=== PATIENT | male | born 1990 | race Caucasian/White ===

== ENCOUNTER 2018-10-16 00:48 | Emergency (ER) | payer OTHER ==
[~2018-10-16] VITALS: Ht 180.3 cm; Wt 109.8 kg
[~2018-10-16 00:48] MED LIST: ALPR.25T PO; ALPR.5T PO; AMOX500C2 PO; BUPR150T PO; BUTA-234 PO; FAMO20TA5 PO; IBP800T PO; LORA10TA7 PO; NAPR-243 PO; OMEP20CA12 PO; ONDAN4ODT SL; ONDN4T PO; RSP2T PO; TRM50T PO; ZIPR20CA23 PO; [UNRECOGNIZED DRUG - REMARK] PO
--- OUTSIDE RECORDS SUMMARY | 2018-10-16 01:01 | XMS REPORT | Clinical Summary ---
Author Author [facility] Address Unknown Phone Unavailable Care Team Providers Care Hris Coordinator Name Role Phone PCP Unavailable Allergies Not on File Current Medications Not on file Active Problems Not on file Social History Tobacco Use Types Packs/Day Years Used Date Never Assessed Sex Assigned at Date Recorded Not on file Last Filed Vital Signs Not on file Plan of Treatment Not on file Results Not on filefrom Last 3 Months
--- OUTSIDE RECORDS SUMMARY | 2018-10-16 01:01 | XMS REPORT | Clinical Summary ---
Author Author [facility] Address Unknown Phone Unavailable Care Team Providers Care Director Employee Communications Name Role Phone PP Unavailable Allergies No Known Allergies Current Medications Prescription Sig. Disp. Refills Start End Date Status Date QUEtiapine (SEROQUEL) 100 One orally at bedtime for 30 2 01/30/20 Active MG tablet insomnia and bipolar 09 aripiprazole (ABILIFY) 20 One orally daily for 30 2 01/30/20 Active MG tablet mood/bipolar 09 lisdexamfetamine Two orally daily 30 0 02/07/20 Active (VYVANSE) 40 MG capsule 09 minocycline (DYNACIN) 100 One orally twice daily 60 2 01/30/20 Active MG tablet for acne 09 .reconcile (MEDICATION No Sig 1 0 05/12/20 Active LIST IMPORTED) 13 Active Problems Not on file Social History Tobacco Use Types Packs/Day Years Used Date Never Assessed Sex Assigned at Date Recorded Not on file Last Filed Vital Signs Vital Sign Reading Time Taken Blood Pressure 120/64 01/29/2009 1:05 PM CDT Pulse - - Temperature - - Respiratory Rate - - Oxygen Saturation - - Inhaled Oxygen - - Concentration Weight 103.1 kg (227 lb 4 oz) 01/29/2009 1:05 PM CDT Height 181.6 cm (5' 11.5") 01/29/2009 1:05 PM CDT Body Mass Index 31.25 01/29/2009 1:05 PM CDT Plan of Treatment Health Maintenance Due Date Last Done Comments Varicella Vaccines (1 of 2005 2 - 2-dose adolescent series) DTaP,Tdap,and Td Vaccines 2011 (1 - Tdap) Influenza Vaccine (#1) 2018 HPV Vaccines Aged Out No longer eligible based on patient's age to complete this topic Results Not on filefrom Last 3 Months
--- OUTSIDE RECORDS SUMMARY | 2018-10-16 01:02 | XMS REPORT | Clinical Summary ---
Author Author [facility] Organization [facility] Address Unknown Phone Unavailable Care Team Providers Care Electric Motor Fitter Name Role Phone Self, Referral PCP Unavailable Jocelyn Vargas RN Unavailable Unavailable Yaya Cruz RN Unavailable Unavailable Source Comments Some departments are not documenting in the electronic medical record. If you do not see the information that you expected, contact Release of Information in the Health Information Management department at [phone] for further assistance in locating additional records.[facility] Allergies No Known Allergies Current Medications Prescription Sig. Disp. Refills Start End Date Status Date minocycline (DYNACIN) 100 Take 100 mg by mouth Active mg PO tablet Twice Daily. QUETIAPINE FUMARATE Take by mouth. Active (SEROQUEL PO) oxcarbazepine (TRILEPTAL) Take 150 mg by mouth Active 150 mg PO tablet Twice Daily. cephalexin (KEFLEX) 500 Take 500 mg by mouth Four Active mg PO capsule Times Daily. chlorhexidine gluconate Take 15 mL by mouth Twice 1 Bottle 0 08/12/20 Active (PERIDEX) 0.12 % MM Daily. 

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
--- NOTE | 2018-10-16 01:12 | ED Upper Extremity ---
General Chief Complaint: Upper Extremity Stated Complaint: RT HAND SWOLLEN Source: patient, police Exam Limitations: no limitations History of Present Illness Date Seen by Provider: Oct 16, 2018 Time Seen by Provider: 00:56 Initial Comments Patient presents to the ER by police with chief complaint that he rolled out of his bunk bed around 8 or 9:00 this evening and fell onto his right hand. He has swelling over the first and second metacarpals. He has decreased range of motion of his fingers. He denies having previous surgery or fractures. He took some ibuprofen around 9 or 10:00 and has had an ice pack on it for about an hour. Allergies and Home Medications Allergies Coded Allergies: No Known Drug Allergies (Unverified , 07/16/16) Home Medications No Active Prescriptions or Reported Meds Patient Home Medication List Home Medication List Reviewed: Yes Review of Systems Constitutional: No chills, No diaphoresis EENTM: No hearing loss, No ear pain Respiratory: No cough, No short of breath Cardiovascular: No chest pain, No edema Gastrointestinal: No abdominal pain, No constipation, No diarrhea Genitourinary: No decreased output, No dysuria Past Qddispt-Xmovkt-Redhva Hx Patient Social History Alcohol Use: Occasionally Uses Recreational Drug Use: Yes Drug of Choice: IV Meth Smoking Status: Current Everyday Smoker Type Used: Cigarettes Recent Foreign Travel: No Contact w/Someone Who Travel: No Recent Hopitalizations: No Immunizations Up To Date Tetanus Booster (TDap): Unknown PED Vaccines UTD: No Seasonal Allergies Seasonal Allergies: No Past Medical History Reproductive Disorders: No ADD/ADHD, Anxiety, Suicide Attempts, Bipolar, Depression Adverse Reaction/Blood Tranf: No Family Medical History No Pertinent Family Hx Physical Exam Vital Signs Vital Signs - First Documented 10/16/18 00:57 Temp 97.3 Pulse 60 Resp 16 B/P (MAP) 113/92 (99) Pulse Ox 97 O2 Delivery Room Air Capillary Refill : Height, Weight, BMI Height: 5'11" Weight: 199lbs. 0.0oz. 90.671997ps; BMI Method:Stated General Appearance: WD/WN, no apparent distress HEENT: PERRL/EOMI, normal ENT inspection Cardiovascular: normal peripheral pulses, regular rate, rhythm Respiratory: no respiratory distress, no accessory muscle use Wrist: Yes normal inspection, Yes normal ROM, Yes bone tenderness (right side) Hand: Right, ecchymosis, limited ROM (of all 5 fingers), nail injury, soft tissue tenderness, swelling (over the dorsum of the second and third metacarpals.) Neurologic/Psychiatric: alert, oriented x 3 Skin: normal color, warm/dry Progress/Results/Core Measures Results/Orders My Orders Orders - JOÃO JENKINS Hand, Right, 3 Views (10/16/18 01:02) Acetaminophen Tablet (Tylenol Tablet) (10/16/18 01:15) Medications Given in ED Current Medications Medications Dose Ordered Sig/Alla Route Start Time Stop Time Status Last Admin Dose Admin Acetaminophen 1,000 mg ONCE ONCE PO 10/16/18 01:15 10/16/18 01:16 DC 10/16/18 01:16 1,000 MG Vital Signs/I&O 10/16/18 00:57 Temp 97.3 Pulse 60 Resp 16 B/P (MAP) 113/92 (99) Pulse Ox 97 O2 Delivery Room Air Progress Progress Note : Time: 01:11 Progress Note Ice pack, Tylenol 1000 mg and hand x-ray. Diagnostic Imaging Diagonstic Imaging: Xray Plain Films/CT/US/NM/MRI: hand Comments No acute osseous abnormalities. Reviewed: Reviewed by Me Departure Impression Primary Impression: Contusion of hand, right Qualified Codes: S60.221A - Contusion of right hand, initial encounter Disposition: HOME, SELF-CARE Condition: Stable Departure-Patient Inst. Decision time for Depature: 01:38 Referrals: [facility] (PCP/Family) Primary Care Physician Patient Instructions: Hand Pain (DC) Add. Discharge Instructions: Ice every 4 hours for the first 3 days. Otherwise Tylenol and ibuprofen. Keep it elevated above the level of your heart when possible. If you're still having significant pain or disability by 7-10 days you should follow-up with your primary care doctor. All discharge instructions reviewed with patient and/or family. Voiced understanding. Scripts No Active Prescriptions or Reported Meds JOÃO JENKINS Oct 16, 2018 01:12
[2018-10-16] MEDS ORDERED: ACETAMINOPHEN 500 MG TAB (TYLENOL) PO ONE (01:15)
[2018-10-16 01:46] VITALS: BP 113/92
--- NOTE | 2018-10-16 07:16 | Diagnostic Imaging Report ---
INDICATION: Right hand injury Three views of the right hand show no fracture, dislocation or other acute abnormalities. IMPRESSION: Negative right hand Dictated by: Dictated on workstation # [id number]
== END 2018-10-16 01:46 | disposition home or self-care (01) ==
LOC: EDUNIT# 00:48 → ER 00:52
DX: S60.221A Contusion of right hand, initial encounter (principal); F31.9 Bipolar disorder, unspecified; F90.9 Attention-deficit hyperactivity disorder, unspecified type; F41.9 Anxiety disorder, unspecified; F15.10 Other stimulant abuse, uncomplicated; F17.210 Nicotine dependence, cigarettes, uncomplicated; Z91.5 Personal history of self-harm; W06.XXXA Fall from bed, initial encounter
CPT/HCPCS: 73130

== ENCOUNTER 2018-10-28 10:03 | Emergency (ER) | payer OTHER ==
[~2018-10-28] VITALS: Ht 180.3 cm; Wt 100.7 kg
--- OUTSIDE RECORDS SUMMARY | 2018-10-28 10:07 | XMS REPORT | Clinical Summary ---
Author Author [facility] Organization [facility] Address Unknown Phone Unavailable Care Team Providers Care Government Relations Director Name Role Phone PCP Unavailable Allergies Not [...]
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
--- OUTSIDE RECORDS SUMMARY | 2018-10-28 10:08 | XMS REPORT | Clinical Summary ---
Author Author [facility] Organization [facility] Address Unknown Phone Unavailable Care Team Providers Care Repairer General Name Role Phone Self, Referral PCP Unavailable Jocelyn Vargas RN Unavailable Unavailable Yaya Cruz RN Unavailable Unavailable Source Comments Some departments are not documenting in the electronic medical record. If you do not see the information that you expected, contact Release of Information in the Health Information Management department at [phone] for further assistance in locating additional records.[facility] Allergies No Known Allergies Medications End Date Status Medication Sig Dispensed Refills Start Date Active minocycline (DYNACIN) 100 Take 100 mg 0 mg PO tablet by mouth Twice Daily. Active QUETIAPINE FUMARATE Take by 0 (SEROQUEL PO) mouth. Active oxcarbazepine (TRILEPTAL) Take 150 mg 0 150 mg PO tablet by mouth Twice Daily. Active cephalexin (KEFLEX) 500 Take 500 mg 0 mg PO capsule by mouth Four Times Daily. Active chlorhexidine gluconate Take 15 mL by 1 Bottle 0 (PERIDEX) 0.12 % MM mouth Twice 0 solution Daily. Active Problems Not on file Immunizations Name Dates Previously Given Next Due DT Vaccine 08/12/2010 Social History Date Tobacco Use Types Packs/Day Years Used Current Every Day Smoker Alcohol Use Drinks/Week oz/Week Comments No Sex Assigned at Date Recorded Not on file Industry Job Start Date Occupation Not on file Not on file Not on file Travel End Travel History Travel Start No recent travel history available. 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
--- OUTSIDE RECORDS SUMMARY | 2018-10-28 10:08 | XMS REPORT | Clinical Summary ---
Author Author [facility] Address Unknown Phone Unavailable Care Team Providers Care Tram Driver Name Role Phone PP Unavailable Allergies No [...]
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
--- NOTE | 2018-10-28 10:48 | Diagnostic Imaging Report ---
INDICATION: Right forearm pain, fall. TIME OF EXAMINATION: 10:55 AM. FINDINGS: The alignment at the elbow and wrist appears normal. The radius and ulna appear intact. No fractures are seen. The soft tissues are unremarkable. IMPRESSION: No acute bony abnormality is detected. Dictated by: Dictated on workstation # [id number]
[2018-10-28 12:17] VITALS: BP 120/90
== END 2018-10-28 12:21 | disposition home or self-care (01) ==
LOC: EDUNIT# 10:03 → ER 10:04
DX: S60.211A Contusion of right wrist, initial encounter (principal); F90.9 Attention-deficit hyperactivity disorder, unspecified type; F41.9 Anxiety disorder, unspecified; F31.9 Bipolar disorder, unspecified; F17.210 Nicotine dependence, cigarettes, uncomplicated; Z91.5 Personal history of self-harm; W10.8XXA Fall (on) (from) other stairs and steps, initial encounter
CPT/HCPCS: 73090

== ENCOUNTER 2019-01-18 12:19 | Emergency (ER) | payer SELFPAY ==
[~2019-01-18] VITALS: Ht 180.3 cm; Wt 79.4 kg
[2019-01-18] MEDS ORDERED: ONDANSETRON 4 MG (ZOFRAN) ORAL DISSOLVE TAB PO ONE (12:45)
--- NOTE | 2019-01-18 13:26 | ED Respiratory ---
General Chief Complaint: Abdominal/GI Problems Stated Complaint: CANT KEEP ANYTHING DOWN, ALITTLE BLOOD Nursing Triage Note: PT PRESENTS TO ED WITH COMPLAINTS OF N/V, AND SORE THROAT X 2-3 DAYS. Source: patient Exam Limitations: no limitations History of Present Illness Date Seen by Provider: Jan 18, 2019 Time Seen by Provider: 12:35 Allergies and Home Medications Allergies Coded Allergies: No Known Drug Allergies (Unverified , 07/16/16) Home Medications No Active Prescriptions or Reported Meds Past Qypvffz-Vmqbhp-Oxzbgd Hx Patient Social History Alcohol Use: Denies Use Recreational Drug Use: No (PST HX) Drug of Choice: IV Meth Smoking Status: Current Everyday Smoker Type Used: Cigarettes 2nd Hand Smoke Exposure: Yes Recent Foreign Travel: No Contact w/Someone Who Travel: No Recent Infectious Disease Expo: No Recent Hopitalizations: No Physical Abuse: No Sexual Abuse: No Mistreated: No Fear: No Immunizations Up To Date Tetanus Booster (TDap): Unknown PED Vaccines UTD: No Seasonal Allergies Seasonal Allergies: No Past Medical History Surgeries: Yes (LIP SURG AFTER DOG BITE) Respiratory: No Cardiac: No Neurological: No Reproductive Disorders: No Genitourinary: No Gastrointestinal: No Musculoskeletal: No Endocrine: No HEENT: No Cancer: No Psychosocial: Yes (states he is supposed to take daily meds but does not currently) ADD/ADHD, Anxiety, Suicide Attempts, Bipolar, Depression Integumentary: No Blood Disorders: No Adverse Reaction/Blood Tranf: No Family Medical History No Pertinent Family Hx Physical Exam Vital Signs - First Documented 01/18/19 12:35 Temp 96.9 Pulse 104 Resp 18 B/P (MAP) 115/91 (99) Pulse Ox 99 Capillary Refill : Less Than 3 Seconds Height: 5'11.00" Weight: 175lbs. 0.0oz. 79.942290en; BMI Method:Stated Progress/Results/Core Measures Suspected Sepsis Recent Fever Within 48 Hours: No Infection Criteria Present: None New/Unexplained Altered Menta: No Sepsis Screen: No Definite Risk SIRS Temperature:96.9 Pulse: 104 Respiratory Rate: 18 Blood Pressure 115 /91 Mean: 99 Results/Orders Lab Results Laboratory Tests Test 01/18/19 12:31 Range/Units Group A Streptococcus Screen NEGATIVE NEGATIVE Micro Results Microbiology 01/18/19 Influenza Types A,B Antigen (JASMYN) - Final, Complete My Orders Orders - MONIE PRO Influenza A And B Antigens (01/18/19 12:35) Rapid Strep A Screen (01/18/19 12:35) Ondansetron Oral Dissolve Tab (Zofran (01/18/19 12:45) Medications Given in ED Current Medications Medications Dose Ordered Sig/Alla Route Start Time Stop Time Status Last Admin Dose Admin Ondansetron HCl 4 mg ONCE ONCE PO 01/18/19 12:45 01/18/19 12:46 DC 01/18/19 13:03 4 MG Vital Signs/I&O 01/18/19 12:35 Temp 96.9 Pulse 104 Resp 18 B/P (MAP) 115/91 (99) Pulse Ox 99 Capillary Refill : Less Than 3 Seconds Blood Pressure Mean: 99 Departure Impression Primary Impression: Viral respiratory infection Disposition: HOME, SELF-CARE Condition: Stable/Unchanged Departure-Patient Inst. Decision time for Depature: 13:24 Referrals: [facility] (PCP/Family) Primary Care Physician Patient Instructions: Viral Upper Respiratory Infection, Adult (DC) Add. Discharge Instructions: Take medications as directed. You may use cbeq-cgr-iqzwzfq cold cough and flu medications as needed. Tylenol and ibuprofen for pain as directed by the bottle. Follow-up with her primary care provider within 1 week for recheck. Return back to the emergency room for worsening symptoms or concerns as needed. All discharge instructions reviewed with patient and/or family. Voiced understanding. Scripts Ondansetron HCl (Zofran) 4 Mg Tab 4 MG PO Q4H, #10 TAB Prov: INOCENCIAMONIE 01/18/19 Work/School Note: Work Release Form Date Seen in the Emergency Department: Jan 18, 2019 Return to Work: Jan 18, 2019 Restrictions: No Restrictions Other Restrictions Listed Below: In the emergency room 01/18/19. Discharged at 1330. MONIE PRO Jan 18, 2019 13:26
[2019-01-18] MEDS ORDERED: ONDN4T PO (13:27)
[2019-01-18 13:31] VITALS: BP 126/70
== END 2019-01-18 13:30 | disposition home or self-care (01) ==
LOC: EDUNIT# 12:19 → ER 12:22
DX: J06.9 Acute upper respiratory infection, unspecified (principal); F90.9 Attention-deficit hyperactivity disorder, unspecified type; F98.8 Other specified behavioral and emotional disorders with onset usually occurring in childhood and adolescence; F41.9 Anxiety disorder, unspecified; F31.9 Bipolar disorder, unspecified; F17.210 Nicotine dependence, cigarettes, uncomplicated; Z98.890 Other specified postprocedural states; Z91.5 Personal history of self-harm
CPT/HCPCS: 87430; 87804

== ENCOUNTER 2019-06-20 23:08 | Emergency (ER) | payer SELFPAY ==
[~2019-06-20] VITALS: Ht 180.3 cm; Wt 79.4 kg
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
--- OUTSIDE RECORDS SUMMARY | 2019-06-20 23:48 | XMS REPORT | Encounter Summary ---
Author Author [facility] Organization [facility] Address Unknown Phone Unavailable Care Team Providers Care Interior Specialist Name Role Phone PCP Unavailable Encounter Details Care Team Description Date Type Department Marco A Muir MD [facility] [address] [place] [address] [phone] 07/23/2010 [facility] Encounter [address] [place] [address] Social History Date Tobacco Use Types Packs/Day Years Used Never Assessed Sex Assigned at Date Recorded Not on file Industry Job Start Date Occupation Not on file Not on file Not on file Travel End Travel History Travel Start No recent travel history available. documented as of this encounter Plan of Treatment Not on filedocumented as of this encounter Procedures Comments Procedure Name Priority Date/Time Associated Diagnosis DRUG PANEL 7 Routine 07/23/2010 8:34 AM CDT TRIIODOTHYRONINE Routine 07/23/2010 8:34 AM CDT THYROID CASCADE Routine 07/23/2010 8:34 AM CDT T4 FREE Routine 07/23/2010 8:34 AM CDT LIPID PANEL Routine 07/23/2010 8:34 AM CDT GLUCOSE Routine 07/23/2010 8:34 AM CDT GAMMA GLUTAMYL Routine 07/23/2010 TRANSFERASE 8:34 AM CDT CREATININE Routine 07/23/2010 8:34 AM CDT CBC AND DIFF (MANUAL DIFF Routine 07/23/2010 IF NECESSARY) 8:34 AM CDT ALANINE AMINOTRANSFERASE Routine 07/23/2010 8:34 AM CDT documented in this encounter Results * CBC and Diff (manual diff if necessary) (07/23/2010 8:34 AM CDT) WBC 5.08 4.00 - 11.00 TH/UL [facility] RBC 5.28 4.31 - 5.84 MIL/UL [facility] Hemoglobin 15.6 13.0 - 17.0 G/DL [facility] Hematocrit 44 40 - 50 % [facility] MCV 82 80 - 99 FL [facility] MCH 30 27 - 34 PG [facility] MCHC 36 32 - 36 % [facility] RDW 13.3 9.0 - 14.5 % [facility] Platelet Count 164 140 - 400 TH/UL [facility] MPV 13.0 (H) 9.4 - 12.3 FL [facility] % Neutrophils 51 45 - 78 % [facility] %Lymphocytes 39 15 - 47 % [facility] %Monocytes 7 0 - 12 % [facility] %Eosinophils 3 0 - 7 % [facility] # Basophils 0.01 0.00 - 0.10 TH/UL [facility] # Eosinophils 0.14 0.00 - 0.40 TH/UL [facility] %Basophils 0 0 - 2 % [facility] # Monocytes 0.36 0.20 - 0.90 TH/UL [facility] # Lymphocytes 1.99 1.00 - 3.30 TH/UL [facility] # Granulocytes 2.58 1.70 - 6.80 TH/UL [facility] Specimen Blood Performing Organization Address [facility] Phone Number [address] [place] [address] [facility] * Glucose (07/23/2010 8:34 AM CDT) Pathologist [facility] Glucose 77 65 - 100 MG/DL [facility] Specimen Blood Performing Organization Address City/[facility] Cent[facility] Phone Number [facility] [address] [place] [address] [facility] * Lipid Panel (07/23/2010 8:34 AM CDT) Cholesterol 153 100 - 200 MG/DL [facility] Triglycerides 112 0 - 150 MG/DL [facility] HDL Cholesterol 37 (L) 40 - 110 MG/DL [facility] LDL Cholesterol 94 0 - 99 MG/DL [facility] Cholesterol/HDL 4.1 0.0 - 4.5 [facility] Ratio Non-HDL 116 0 - 130 MG/DL [facility] Cholesterol Specimen Blood Performing Organization Address [facility] Phone Number [address] [place] [address] [facility] * Creatinine (07/23/2010 8:34 AM CDT) Creatinine 0.7 0.6 - 1.3 MG/DL [facility] Specimen Blood Performing Organization Address [facility] Phone Number [address] [place] [address] [facility] * Alanine Aminotransferase (07/23/2010 8:34 AM CDT) Alanine 20 14 - 63 IU/L [facility] Aminotransferas e Specimen Blood Performing Organization Address [facility] Phone Number [address] [place] [address] [facility] * Gamma Glutamyl Transferase (07/23/2010 8:34 AM CDT) Gamma Glutamyl 17 5 - 55 IU/L [facility] Transferase Specimen Blood Performing Organization Address [facility] Phone Number [address] [place] [address] [facility] * Thyroid [place] (07/23/2010 8:34 AM CDT) Thyroid 0.06 (L) 0.45 - 4.50 UIU/ML [facility] Stimulating Hormone Specimen Blood Performing Organization Address [facility] Phone Number [address] [place] [address] [facility] * T4 Free (07/23/2010 8:34 AM CDT) T4 Free 1.0 0.6 - 1.6 NG/DL [facility] Specimen Blood Performing Organization Address [facility] Cent[facility]ode Phone Number [address] [place] [address] [facility] * Triiodothyronine (07/23/2010 8:34 AM CDT) Triiodothyronin 132 60 - 180 NG/DL [facility] e Specimen Blood Performing Organization Address [facility] Phone Number [address] [place] [address] [facility] * Drug Panel 7 (07/23/2010 8:34 AM CDT) Amphetamines Not Detected Not Detected [facility] Urine Barbiturates Not Detected Not Detected [facility] Urine Benzodiazepines Not Detected Not Detected [facility] Urine Cocaine Urine Not Detected Not Detected [facility] Opiates Urine Not Detected Not Detected [facility] Phencyclidine Not Detected Not Detected [facility] Urine Tetrahydrocanna Not DetectedComment: Not Detected [facility] binol Urine Cannabinoids screened at a cutoff of 20 ng/mL (instead of 50 ng/mL). Tape N/A [facility] Creatinine 199.0 MG/DL [facility] Urine Random Drug screen NA [facility] control number Specimen Urine Performing Organization Address City/State/Zipcode Phone Number [address] [place] [address] [facility] documented in this encounter Visit Diagnoses Not on filedocumented in this encounter
--- OUTSIDE RECORDS SUMMARY | 2019-06-20 23:48 | XMS REPORT | Clinical Summary ---
Author Author [facility] Organization [facility] Address Unknown Phone Unavailable Care Team Providers Care Personal Care Service Provider Name Role Phone PCP Unavailable Allergies Not on File Medications Not on file Active Problems Not on file Social History Date Tobacco Use Types Packs/Day Years Used Never Assessed Sex Assigned at Date Recorded Not on file Industry Job Start Date Occupation Not on file Not on file Not on file Travel End Travel History Travel Start No recent travel history available. Last Filed Vital Signs Not on file Plan of Treatment Not on file Results Not on filefrom Last 3 Months
--- OUTSIDE RECORDS SUMMARY | 2019-06-20 23:49 | XMS REPORT | Clinical Summary ---
Author Author [facility] Organization [facility] Address Unknown Phone Unavailable Care Team Providers Care Digital Music Instructor Name Role Phone Self, Referral PCP Unavailable Jocelyn Vargas RN Unavailable Unavailable Yaya Cruz RN Unavailable Unavailable Source Comments Some departments are not documenting in the electronic medical record. If you d o not see the information that you expected, contact Release of Information in [facility] Information Management department at [phone] for further assistan ce in locating additional records.[facility] Allergies No Known Allergies Medications End [...] Active Problems Not on file Immunizations Name Administration Dates Next Due DT Vaccine 08/12/2010 Social History Date Tobacco Use Types Packs/Day Years Used Current Every Day Smoker Drinks/Week oz/Week Comments Alcohol Use No Sex Assigned at Date Recorded Not on file Industry Job Start Date Occupation Not on file Not on file Not on file Travel End Travel History Travel Start No recent travel history available. Last Filed Vital Signs Reading Time Taken Comments Vital Sign 128/80 08/12/2010 5:48 PM CDT Blood Pressure 73 12/03/2009 8:36 PM ADMISSIONS CLERK Pulse 36.4 C (97.5 F) 08/12/2010 5:48 PM CDT Temperature - - Respiratory Rate 99% 08/12/2010 5:48 PM CDT Oxygen Saturation - - Inhaled Oxygen Concentration 101.2 kg (223 lb 1.7 oz) 08/12/2010 5:48 PM CDT Weight - - Height - - Body Mass Index Plan of Treatment Health Maintenance Due Date Last Done Comments PHYSICAL (COMPREHENSIVE) 1999 EXAM HIV SCREENING 2007 INFLUENZA VACCINE 08/22/2019 DTAP/TDAP VACCINES (2 - 08/12/2020 08/12/2010 Tdap) Results Not on filefrom Last 3 Months
--- OUTSIDE RECORDS SUMMARY | 2019-06-20 23:49 | XMS REPORT | Clinical Summary ---
Author Author [facility] Address Unknown Phone Unavailable Care Team Providers Care Procurement Cost Coordinator Name Role Phone PP Unavailable Allergies No Known Allergies Medications End Date Status Medication Sig Dispensed Refills Start Date Active QUEtiapine (SEROQUEL) 100 One orally at 30 2 03/10/200 MG tablet bedtime for 9 insomnia and bipolar Active aripiprazole (ABILIFY) 20 One orally 30 2 03/10/200 MG tablet daily for 9 mood/bipolar Active lisdexamfetamine Two orally 30 0 //200 (VYVANSE) 40 MG capsule daily 9 Active minocycline (DYNACIN) 100 One orally 60 2 03/10/200 MG tablet twice daily 9 for acne Active .reconcile (MEDICATION No Sig 1 0 LIST IMPORTED) 3 Active Problems Not on file Social History Date Tobacco Use Types Packs/Day Years Used Never Assessed Sex Assigned at Date Recorded Not on file Industry Job Start Date Occupation Not on file Not on file Not on file Travel End Travel History Travel Start No recent travel history available. Last Filed Vital Signs Reading Time Taken Comments Vital Sign 120/64 01/29/2009 1:05 PM CDT Blood Pressure - - Pulse - - Temperature - - Respiratory Rate - - Oxygen Saturation - - Inhaled Oxygen Concentration 103.1 kg (227 lb 4 oz) 01/29/2009 1:05 PM CDT Weight 181.6 cm (5' 11.5") 01/29/2009 1:05 PM CDT Height 31.25 01/29/2009 1:05 PM CDT Body Mass Index Plan of Treatment Health Maintenance Due Date Last Done Comments Varicella Vaccines (1 of 2005 2 - 13+ 2-dose series) DTaP,Tdap,and Td Vaccines 2011 (1 - Tdap) MMR Vaccines-Adult 2011 Influenza Vaccine (#1) 2019 HPV Vaccines Aged Out No longer eligible based on patient's age to complete this topic Pneumo-Vaccine: Peds (0-5 Aged Out No longer eligible based Yrs) & At-Risk Patients on patient's age to (6-64 Yrs) complete this topic Results Not on filefrom Last 3 Months
--- OUTSIDE RECORDS SUMMARY | 2019-06-20 23:49 | XMS REPORT ---
Author Author Lucina Baumann Organization [facility] Address [address] [address] Care Team Providers Care Character Actress Name Role Phone Lucina Baumann Unavailable PROBLEMS Type Condition ICD9-CM Code [id number] Code Onset Dates Condition Status SNOMED Code Problem Bipolar 1 disorder F31.9 Active 806137691 Problem Mixed obsessional thoughts and acts F42.2 Active 638000976 Problem Nicotine dependence with current use F17.200 Active 829396831 Problem ADHD (attention deficit hyperactivity disorder), inattentive type F90.0 Active 94371632 Problem PTSD (post-traumatic stress disorder) F43.10 Active 27643666 ALLERGIES No Information ENCOUNTERS Encounter Location Date [facility] [place] [address] [place] [id number] Feb, [facility] [address] [id number] Feb, Risk for dental caries, low Z91.841 ; Risk for dental caries, moderate Z91.842 and Risk for dental caries, high Z91.[address] [id number] Feb, PTSD (post-traumatic stress disorder) F43.10 ; Injury of right wrist, initial encounter S69.91XA ; Nicotine dependence with current use F17.200 ; Encounter for screening for other viral diseases Z11.59 ; Screening for HIV (human immunodeficiency virus) Z11.4 ; Screening for deficiency anemia Z13.0 ; Screening for metabolic disorder Z13.228 and Screening for thyroid disorder Z13.29 IMMUNIZATIONS No Known Immunizations SOCIAL HISTORY Never Assessed REASON FOR VISIT [facility] PLAN OF CARE VITAL SIGNS MEDICATIONS Unknown Medications RESULTS No Results PROCEDURES No Known procedures INSTRUCTIONS MEDICATIONS ADMINISTERED No Known Medications MEDICAL (GENERAL) HISTORY Type Description Date Medical History ADHD (attention deficit hyperactivity disorder), inattentive type Medical History Bipolar 1 disorder Medical History PTSD (post-traumatic stress disorder) Medical History Mixed obsessional thoughts and acts Medical History Nicotine dependence with current use Hospitalization History [facility] [place], [place] 11/2014
--- OUTSIDE RECORDS SUMMARY | 2019-06-20 23:49 | XMS REPORT ---
Author Author Lucina Baumann Organization [facility] Address [address] [place] [address] Care Team Providers Care Site Director Name Role Phone Lucina Baumann Unavailable PROBLEMS Type Condition ICD9-CM Code OAA91-UR Code Onset Dates Condition Status SNOMED Code Problem Bipolar 1 disorder F31.9 Active 876874065 Problem Mixed obsessional thoughts and acts F42.2 Active 717379719 Problem Nicotine dependence with current use F17.200 Active 436478102 Problem ADHD (attention deficit hyperactivity disorder), inattentive type F90.0 Active 12133374 Problem PTSD (post-traumatic stress disorder) F43.10 Active 65146729 ALLERGIES Substance Reaction Event Type Date Status liquid bandaid hives Non Drug Allergy Feb, Active ENCOUNTERS Encounter Location Date Diagnosis [address] [id number] Feb, Risk for dental caries, low Z91.841 ; Risk for dental caries, moderate Z91.842 and Risk for dental caries, high Z91.[address] [id number] Feb, PTSD (post-traumatic stress disorder) F43.10 ; [...] SOCIAL HISTORY Never Assessed [facility] Activity Details Follow Up prn Reason:F/U After Treatment Pending Test CBC With Differential/Platelet Pending Test Panel [id number] (HIV) Pending Test HCV Antibody Pending Test Comp. Metabolic Panel (14) Pending Test TSH reflex to T4 VITAL SIGNS Temperature 97.9 degrees Fahrenheit 2019-03-02 Heart Rate 80 /min 2019-03-02 Respiratory Rate 20 /min 2019-03-02 Oximetry 100 % 2019-03-02 Weight 220 lbs 2019-03-02 Height 71 in 2019-03-02 BMI 30.68 kg/m2 2019-03-02 Blood pressure systolic 112 mm Hg 2019-03-02 Blood pressure diastolic 79 mm Hg 2019-03-02 MEDICATIONS Medication Instructions Dosage Frequency Start Date End Date Duration Status Nicotine 21 MG/24HR Transdermal Once a day 1 patch to skin 24h Feb, 30 day(s) Active Wellbutrin XL 150 MG Orally Once a day 1 tablet in the morning 24h 30 day(s) Active RESULTS No Results PROCEDURES Procedure Date Ordered Result Body Site COMPREHEN METABOLIC PANEL March 02, 2019 BEHAV CHNG SMOKING 3-10 MIN March 02, 2019 COMPLETE CBC W/AUTO DIFF WBC March 02, 2019 INSTRUCTIONS MEDICATIONS ADMINISTERED No Known Medications MEDICAL (GENERAL) HISTORY Type Description Date Medical History ADHD (attention deficit hyperactivity disorder), inattentive type Medical History Bipolar 1 disorder Medical History PTSD (post-traumatic stress disorder) Medical History Mixed obsessional thoughts and acts Medical History Nicotine dependence with current use [facility]ization [facility] [place] [facility]
--- OUTSIDE RECORDS SUMMARY | 2019-06-20 23:49 | XMS REPORT ---
Author Author Mirella Wilde [facility] Address [address] [place] [address] Care Team Providers Care Program Management Manager Name Role Phone Mirella Wilde Unavailable PROBLEMS Type Condition ICD9-CM Code WFT38-GC Code Onset Dates Condition Status SNOMED Code Problem Bipolar 1 disorder F31.9 Active 161801465 Problem Mixed obsessional thoughts and acts F42.2 Active 549084480 Problem Nicotine dependence with current use F17.200 Active 268423583 Problem ADHD (attention deficit hyperactivity disorder), inattentive type F90.0 Active 77353183 Problem PTSD (post-traumatic stress disorder) F43.10 Active 01889892 ALLERGIES No Information ENCOUNTERS Encounter [facility] Date [facility] [address] [id number] Feb, Risk for dental caries, low Z91.841 ; Risk for dental caries, moderate Z91.842 and Risk for dental caries, high Z91.843 [facility] [address] [id number] Feb, PTSD (post-traumatic stress disorder) F43.10 ; [...] SOCIAL HISTORY Never Assessed REASON FOR VISIT Integrated dental screening PLAN OF CARE VITAL SIGNS MEDICATIONS Unknown Medications RESULTS No Results PROCEDURES Procedure Date Ordered Result Body Site CARIES RISK ASSESS DOC FIND HI RSK March 02, 2019 SCREENING OF A PATIENT March 02, 2019 TOPICAL FLUORIDE VARNISH March 02, 2019 INSTRUCTIONS MEDICATIONS ADMINISTERED No Known Medications MEDICAL (GENERAL) HISTORY Type Description Date Medical History ADHD (attention deficit hyperactivity disorder), inattentive type Medical History Bipolar 1 disorder Medical History PTSD (post-traumatic stress disorder) Medical History Mixed obsessional thoughts and acts Medical History Nicotine dependence with current use Hospitalization History [facility] [place] 11[place]2014
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
[2019-06-21 01:25] VITALS: BP 136/88
--- NOTE | 2019-06-21 07:06 | Diagnostic Imaging Report ---
INDICATION: Twisted right ankle 2 weeks ago, pain and redness in the left leg. FINDINGS: Frontal and lateral views of the left tibia and fibula demonstrates normal ossification. No fractures are present. IMPRESSION: Negative left tibia and fibula. Dictated by: Dictated on workstation # [id number]
--- NOTE | 2019-06-21 07:06 | Diagnostic Imaging Report ---
INDICATION: Twisted right ankle 2 weeks ago, now has pain and redness. FINDINGS: 3 views of the right foot demonstrates normal ossification. No fracture or dislocation is present. IMPRESSION: Normal foot. The requisition states right foot, but the radiographs are labeled left foot. Dictated by: Dictated on workstation # [id number]
--- NOTE | 2019-06-21 07:08 | Diagnostic Imaging Report ---
INDICATION: Twisted right ankle 2 weeks ago, now has pain and redness. FINDINGS: 3 views of the left tibia and fibula demonstrate no fracture, dislocation or joint effusion. There is some ossification of the interosseous membrane. IMPRESSION: There are no acute findings. Dictated by: Dictated on workstation # [id number]
== END 2019-06-21 01:25 | disposition home or self-care (01) ==
LOC: EDUNIT# 23:08 → ER 23:12
DX: S82.51XA Displaced fracture of medial malleolus of right tibia, initial encounter for closed fracture (principal); F41.9 Anxiety disorder, unspecified; F90.9 Attention-deficit hyperactivity disorder, unspecified type; F31.9 Bipolar disorder, unspecified; F15.10 Other stimulant abuse, uncomplicated; Z77.22 Contact with and (suspected) exposure to environmental tobacco smoke (acute) (chronic); X50.1XXA Overexertion from prolonged static or awkward postures, initial encounter; W19.XXXA Unspecified fall, initial encounter
CPT/HCPCS: 73590; 73610; 73630

== ENCOUNTER 2021-01-18 22:32 | Emergency (ER) | payer SELFPAY ==
[~2021-01-18] VITALS: Ht 180.3 cm; Wt 80.7 kg
[2021-01-19] MEDS ORDERED: RX-TRIMETH/SULFA. 160-800 MG (BACTRIM DS) TAB PPK#2 PO STA (00:29)
[2021-01-19] MEDS ORDERED: MUPI22OI2 TP (00:31)
[2021-01-19] MEDS ORDERED: SULF1TAB35 PO (00:31)
--- NOTE | 2021-01-19 00:31 | ED Integumentary General ---
General Chief Complaint: Skin/Wound Problems Stated Complaint: SPIDER BITE ON L ARM Nursing Triage Note: TO ED VIA POV AND AMBULATORY TO ROOM 5 WITH C/O SPIDER BITE TO LEFT UPPER ARM. PT STATES HE NOTICED THIS 3 DAYS AGO AND DID NOT SEE A SPIDER. DENIES FEVER, COUGH, SOA. Source: patient History of Present Illness Date Seen by Provider: Jan 18, 2021 Time Seen by Provider: 23:30 Initial Comments PT ARRIVES VIA POV -- AND ADULT FEMALE AND 2 CHILDREN ARRIVE WITH PT. ONE CHILD IS ALSO BEING SEEN FOR UNRELATED PROBLEM C/O "SPIDER BITE" TO LEFT UPPER ARM X 3 DAYS DID NOT SEE OR FEEL ANYTHING BITE/STING HIM STATES THE AREA STARTED OUT A "ALVARENGA" PIMPLE PT HAS BEEN SQUEEZING IT, POKING IT, ETC--STATES HE HAS BEEN GETTING "ALOT WHITE STUFF" OUT OF IT NO DRAINAGE UNLESS HE SQUEEZES IT NO FEVER HAS HAD SAME THING MULTIPLE TIMES--CLAIMS LAST TIME WAS APPROXIMATELY 6 MONTHS AGO WANTS AN ANTIBIOTIC-STATES BACTRIM WORKS GOOD WHEN HE HAS THESE. PCP: K[facility]TON Allergies and Home Medications Allergies Coded Allergies: No Known Drug Allergies (Unverified , 07/16/16) Home Medications Mupirocin 22 Gm Oint...g., 22 GM TP BID Prescribed by: MELANY MARES on 01/19/21 003 Ondansetron HCl 4 Mg Tab, 4 MG PO Q4H Prescribed by: MONIE PRO on 01/18/19 1327 Sulfamethoxazole/Trimethoprim 1 Each Tablet, 1 EACH PO BID Prescribed by: MELANY MARES on 01/19/2130 Patient Home Medication List Home Medication List Reviewed: Yes Review of Systems Review of Systems Constitutional: no symptoms reported Skin: see HPI Past Lhymcfz-Kchvai-Piuvhg Hx Past Med/Social Hx: Reviewed and Corrections made Patient Social History Alcohol Use: Denies Use Drug of Choice: IV Meth; MARIJUANA Smoking Status: Current Everyday Smoker Type Used: Cigarettes 2nd Hand Smoke Exposure: Yes Recent Infectious Disease Expo: No Recent Hopitalizations: No Substance type: Methamphetamine (+ IV METH), Marijuana Immunizations Up To Date Tetanus Booster (TDap): Unknown PED Vaccines UTD: No Seasonal Allergies Seasonal Allergies: No Past Medical History Surgeries: Yes (LIP SURG AFTER DOG BITE) Respiratory: No Cardiac: No Neurological: No Reproductive Disorders: No Genitourinary: No Gastrointestinal: No Musculoskeletal: No Endocrine: No HEENT: No Cancer: No Psychosocial: Yes (POLYSUBSTANCE ABUSE) ADD/ADHD, Anxiety, Suicide Attempts, Bipolar, Depression Integumentary: Yes (SKIN INFECTIONS; TATTOOS) Blood Disorders: No Adverse Reaction/Blood Tranf: No Family Medical History No Pertinent Family Hx STATES "I'M NOT ALLOWED IN [place] ANYMORE" Physical Exam Vital Signs Vital Signs - First Documented 01/18/21 01/19/21 23:27 00:37 Temp 36.8 Pulse 112 Resp 18 B/P (MAP) 138/93 (108) Pulse Ox 99 O2 Delivery Room Air Capillary Refill : Less Than 3 Seconds General Appearance: WD/WN, no apparent distress, thin, other (CONSTANT MOVEMENTS) HEENT: other (EXTREMELY POOR DENTITION) Neurologic/Psychiatric: no motor/sensory deficits Skin: tattoos/piercings (EXTENSIVE TATTOOS), other (LEFT UPPER ARM WITH 3 CM AREA OF ERYTHEMA AND MILD INDURATION WITH CENTRAL SCABBED AREA. NO DRAINAGE. NO STREAKS. NO FLUCTUANCE. ) Progress/Results/Core Measures Results/Orders My Orders Orders - MELANY MARES DO Rx-Trimeth/Sulfameth Ds Tab (Rx-Bactrim/ (01/19/21 00:29) Vital Signs/I&O 01/18/21 01/19/21 23:27 00:37 Temp 36.8 36.8 Pulse 112 98 Resp 18 18 B/P (MAP) 138/93 (108) 135/90 (108) Pulse Ox 99 O2 Delivery Room Air Room Air Blood Pressure Mean: 108 Departure Impression Primary Impression: Cellulitis of left upper arm Additional Impression: SUSPECTED MRSA INFECTION Disposition: 01 HOME, SELF-CARE Condition: Stable Departure-Patient Inst. Referrals: [facility] ([facility]Family) Primary Care Physician Patient Instructions: MRSA (DC), Cellulitis (Skin Infection), Adult ED Add. Discharge Instructions: DO NOT SQUEEZE, POKE OR PICK AT THE AREA CLEAN TWICE A DAY WITH ANTIBACTERIAL SOAP AND WATER, APPLY ANTIBIOTIC OINTMENT AND FRESH DRESSING TWICE A DAY TYLENOL AND MOTRIN NEEDED FOR PAIN FOLLOW UP WITH [facility] IN 3-4 DAYS IF NO BETTER All discharge instructions reviewed with patient and/or family. Voiced understanding. Scripts Mupirocin (Mupirocin) 22 Gm Oint...g. 22 GM TP BID, #1 TUBE Prov: MELANY MARES DO 01/19/21 Sulfamethoxazole/Trimethoprim (Bactrim Ds Tablet) 1 Each Tablet 1 EACH PO BID, #20 TAB Prov: MELANY MARES DO 01/19/21 MELANY MARES DO Jan 19, 2021 00:31
[2021-01-19 00:37] VITALS: BP 135/90
== END 2021-01-19 00:37 | disposition home or self-care (01) ==
LOC: EDUNIT# 22:32 → ER 22:34
DX: L03.114 Cellulitis of left upper limb (principal); F17.210 Nicotine dependence, cigarettes, uncomplicated
CPT/HCPCS: 99283

== ENCOUNTER 2022-04-28 11:10 | Emergency (ER) | payer SELFPAY ==
[~2022-04-28] VITALS: Ht 182 cm; Wt 101.6 kg
[~2022-04-28 11:10] MED LIST changes: +MUPI22OI2 TP; +SULF1TAB38 PO
[2022-04-28] MEDS ORDERED: NS IV 1000 ML 1,000 ML IV STA (12:05)
--- NOTE | 2022-04-28 12:10 | ED Abdominal Pain ---
General Chief Complaint: Abdominal/GI Problems Stated Complaint: R SIDE PAIN - VOMITING BLOOD Nursing Triage Note: FROM [facility] THIS AM WITH C/O RIGHT LOWER ABDOMINAL PAIN. WAS TOLD TO COME HERE TO R/O APPENDICITIS Source of Information: Patient Exam Limitations: No Limitations History of Present Illness Date Seen by Provider: Apr 28, 2022 Time Seen by Provider: 12:08 Initial Comments Patient is a 31-year-old male who presents the ED with right lower quadrant abdominal pain. Pain started this morning when he woke up. Describes sharp with some radiation to the right lower back and left abdomen. Patient states he vomited 10+ episodes with bright red tinge in his blood the last 2 or 3 episodes. 3-4 watery diarrhea without any blood or mucus. No history of previous abdominal surgery. History of kidney stones and states this feels different. Denies of any pain with urination, dark urine, or frequent urination. Denies chest pain, shortness of breath, headache, dizziness. Was seen at the clinic and was sent over the ED concern for appendicitis. Denies t sacha any medication Allergies and Home Medications Allergies Coded Allergies: No Known Drug Allergies (Unverified , 07/16/16) Patient Home Medication List Home Medication List Reviewed: Yes Mupirocin (Mupirocin) 22 Gm Oint...g., 22 GM TP BID Prescribed by: MELANY MARES on 01/19/2130 Ondansetron (Ondansetron Odt) 4 Mg Tab.rapdis, 4 MG PO Q6H Prescribed by: JACQUELINE DAUGHERTY on 04/28/22 1316 Ondansetron HCl (Zofran) 4 Mg Tab, 4 MG PO Q4H Prescribed by: MONIE PRO on 01/18/19 1327 Sulfamethoxazole/Trimethoprim (Bactrim Ds Tablet) 1 Each Tablet, 1 EACH PO BID Prescribed by: MELANY MARES on 01/19/2130 Review of Systems Review of Systems Constitutional: No chills, No diaphoresis, No malaise, No weakness EENTM: No Blurred Vision, No Eye Pain, No Mouth Pain, No Mouth Swelling Respiratory: Denies Cough, Denies SOA With Exertion Gastrointestinal: Abdominal Pain, Diarrhea, Nausea, Vomiting, Other (Hematemesis) Genitourinary: Denies Burning, Denies Discharge, Denies Frequency, Denies Flank Pain Musculoskeletal: No back pain, No joint pain Skin: No change in color, No change in hair/nails All Other Systems Reviewed Negative Unless Noted: Yes Past Yztqmlu-Sbytdo-Gojvvy Hx Immunizations Up To Date Tetanus Booster (TDap): Unknown PED Vaccines UTD: No Seasonal Allergies Seasonal Allergies: No Past Medical History Surgeries: Yes (LIP SURG AFTER DOG BITE) Respiratory: No Cardiac: No Neurological: No Reproductive Disorders: No Genitourinary: No Gastrointestinal: No Musculoskeletal: No Endocrine: No HEENT: No Cancer: No Psychosocial: Yes (POLYSUBSTANCE ABUSE) ADD/ADHD, Anxiety, Suicide Attempts, Bipolar, Depression Integumentary: Yes (SKIN INFECTIONS; TATTOOS) Blood Disorders: No Adverse Reaction/Blood Tranf: No Family Medical History No Pertinent Family Hx STATES "I'M NOT ALLOWED IN [employer] ANYMORE" Physical Exam Vital Signs Vital Signs - First Documented 04/28/22 11:41 Pulse 65 Resp 18 B/P (MAP) 119/92 (101) Pulse Ox 98 O2 Delivery Room Air Capillary Refill : Less Than 3 Seconds Height/Weight/BMI Height: 5'11.00" Weight: 175lbs. 0.0oz. [id number]; 30.00 BMI Method:Stated General Appearance: WD/WN, no apparent distress HEENT: PERRL/EOMI, normal ENT inspection, TMs normal, pharynx normal Neck: non-tender, full range of motion, supple, normal inspection Respiratory: chest non-tender, lungs clear, normal breath sounds, no respiratory distress, no accessory muscle use Cardiovascular: regular rate, rhythm, no edema, no gallop, no JVD Gastrointestinal: normal bowel sounds, soft, no organomegaly, other (Right lower quadrant tenderness, left lower quadrant tenderness. Normal bowel sound throughout. No rebound or guarding) Extremities: normal range of motion, non-tender, normal inspection Back: normal inspection Neurologic/Psychiatric: cardboard cutter II-XII nml as tested, no motor/sensory deficits, alert, normal mood/affect, oriented x 3 Skin: normal color, warm/dry Progress/Results/Core Measures Results/Orders Lab Results Laboratory Tests Test 04/28/22 11:45 04/28/22 13:25 Range/Units White Blood Count 6.5 4.3-11.0 10^3/uL Red Blood Count 5.01 4.30-5.52 10^6/uL Hemoglobin 15.0 13.3-17.7 g/dL Hematocrit 42 40-54 % Mean Corpuscular Volume 85 80-99 fL Mean Corpuscular Hemoglobin 30 25-34 pg Mean Corpuscular Hemoglobin Concent 35 32-36 g/dL Red Cell Distribution Width 13.4 10.0-14.5 % Platelet Count 179 130-400 10^3/uL Mean Platelet Volume 12.2 9.0-12.2 fL Immature Granulocyte % (Auto) 0 % Neutrophils (%) (Auto) 56 42-75 % Lymphocytes (%) (Auto) 31 12-44 % Monocytes (%) (Auto) 6 0-12 % Eosinophils (%) (Auto) 6 0-10 % Basophils (%) (Auto) 0 0-10 % Neutrophils # (Auto) 3.6 1.8-7.8 10^3/uL Lymphocytes # (Auto) 2.0 1.0-4.0 10^3/uL Monocytes # (Auto) 0.4 0.0-1.0 10^3/uL Eosinophils # (Auto) 0.4 H 0.0-0.3 10^3/uL Basophils # (Auto) 0.0 0.0-0.1 10^3/uL Immature Granulocyte # (Auto) 0.0 0.0-0.1 10^3/uL Sodium Level 138 135-145 MMOL/L Potassium Level 4.0 3.6-5.0 MMOL/L Chloride Level 104 98-107 MMOL/L Carbon Dioxide Level 25 21-32 MMOL/L Anion Gap 9 5-14 MMOL/L Blood Urea Nitrogen 9 7-18 MG/DL Creatinine 0.78 0.60-1.30 MG/DL Estimat Glomerular Filtration Rate 124 BUN/Creatinine Ratio 12 Glucose Level 87 70-105 MG/DL Calcium Level 9.3 8.5-10.1 MG/DL Corrected Calcium 9.0 8.5-10.1 MG/DL Total Bilirubin 0.5 0.1-1.0 MG/DL Aspartate Amino Transf (AST/SGOT) 15 5-34 U/L Alanine Aminotransferase (ALT/SGPT) 12 0-55 U/L Alkaline Phosphatase 73 40-136 U/L Total Protein 7.2 6.4-8.2 GM/DL Albumin 4.4 3.2-4.5 GM/DL Lipase 23 8-78 U/L Urine Color YELLOW Urine Clarity CLEAR Urine pH 7.0 5-9 Urine Specific Victor 1.010 L 1.016-1.022 Urine Protein NEGATIVE NEGATIVE Urine Glucose (UA) NEGATIVE NEGATIVE Urine Ketones NEGATIVE NEGATIVE Urine Nitrite NEGATIVE NEGATIVE Urine Bilirubin NEGATIVE NEGATIVE Urine Urobilinogen 0.2 < = 1.0 MG/DL Urine Leukocyte Esterase NEGATIVE NEGATIVE Urine RBC (Auto) NEGATIVE NEGATIVE Urine RBC NONE /HPF Urine WBC 0-2 /HPF Urine Squamous Epithelial Cells RARE /HPF Urine Crystals NONE /LPF Urine Bacteria NEGATIVE /HPF Urine Casts NONE /LPF Urine Mucus NEGATIVE /LPF Urine Culture Indicated NO My Orders Orders - HO ARGUETA Cbc With Automated Diff (04/28/22 12:05) Comprehensive Metabolic Panel (04/28/22 12:05) Lipase (04/28/22 12:05) Ct Abd/Pelv W (Appendicitis) (04/28/22 12:05) Ns Iv 1000 Ml (Sodium Chloride 0.9%) (04/28/22 12:05) Ondansetron Injection (Zofran Injectio (04/28/22 12:15) Ketorolac Injection (Toradol Injection) (04/28/22 12:15) Iohexol Injection (Omnipaque 350 Mg/Ml 1 (04/28/22 12:15) Received Contrast (Hold Metformin- Contr (04/28/22 12:15) Ns (Ivpb) (Sodium Chloride 0.9% Ivpb Bag (04/28/22 12:15) Sodium Chloride Flush (Catheter Flush Sy (04/28/22 12:15) Medications Given in ED Current Medications Medications Dose Ordered Sig/Alla Route Start Time Stop Time Status Last Admin Dose Admin Iohexol 100 ml ONCE ONCE IV 04/28/22 12:15 04/28/22 12:16 DC 04/28/22 12:41 97 ML Ketorolac Tromethamine 30 mg ONCE ONCE IVP 04/28/22 12:15 04/28/22 12:16 DC 04/28/22 12:33 30 MG Ondansetron HCl 4 mg ONCE ONCE IVP 04/28/22 12:15 04/28/22 12:16 DC 04/28/22 12:33 4 MG Sodium Chloride 10 ml NEEDED PRN IV 04/28/22 12:15 04/28/22 13:54 DC 04/28/22 12:41 10 ML Sodium Chloride 100 ml ONCE ONCE IV 04/28/22 12:15 04/28/22 12:16 DC 04/28/22 12:41 80 ML Vital Signs/I&O 04/28/22 11:41 Pulse 65 Resp 18 B/P (MAP) 119/92 (101) Pulse Ox 98 O2 Delivery Room Air Blood Pressure Mean: 101 Departure Communication (PCP) Patient lab work was otherwise unremarkable. Urinalysis negative for infection. CT on pelvis negative for acute abnormality in the abdomen. Patient was given Toradol with improvement of pain. Zofran improvement of nausea. Tolerating p.o. fluids. Did urinate here without difficulties. No urinary symptoms. No chest pain, shortness of breath or cough. Patient with bradycardia. Not currently on any type of blood pressure medication. No chest pain shortness of breath. Otherwise healthy 31-year-old male. Outpatient follow-up. Possible GI infection likely viral. Denies eating thing differently over the past 24 hours. Denies any bloody mucousy stool. Did vomit bright red blood. No vomiting since. Likely more secondary to gastritis or esophageal irritation. Discussed clear liquids over the next 24 to 48 hours. Then increase to bland diet. If any worsening symptoms return back to ED for further evaluation Impression Primary Impression: Abdominal pain Disposition: HOME, SELF-CARE Condition: Stable Departure-Patient Inst. Decision time for Depature: 13:15 Referrals: [facility] [place] (PCP/Family) Primary Care Physician Patient Instructions: Abdominal Pain, Adult ED Add. Discharge Instructions: Recommend oral hydration. Zofran for nausea and vomiting. If any worsening symptoms may consider following up with primary care physician or return back to ED. Recommend clear liquid diet for the next 24 to 48 hours. Then increase to more of a bland diet. All discharge instructions reviewed with patient and/or family. Voiced understa nding. Scripts Ondansetron (Ondansetron Odt) 4 Mg Tab.rapdis 4 MG PO Q6H, #8 TAB Prov: HO ARGUETA 04/28/22 Work/School Note: Work Release Form Date Seen in the Emergency Department: Apr 28, 2022 Return to Work: May 01, 2022 HO ARGUETA Apr 28, 2022 12:10
[2022-04-28] MEDS ORDERED: HOLD METFORMIN - RECEIVED CONTRAST 20 ML VIAL IV SCH (12:15)
[2022-04-28] MEDS ORDERED: IOHEXOL 350 MG/ML 100 ML (OMNIPAQUE 350) VIAL IV ONE (12:15)
[2022-04-28] MEDS ORDERED: NS 100 ML (IVPB) BAG IV ONE (12:15)
[2022-04-28] MEDS ORDERED: KETOROLAC 30 MG/ML VIAL IVP ONE (12:15)
[2022-04-28] MEDS ORDERED: ONDANSETRON 4 MG/2 ML (SDV) Z0FRAN IVP ONE (12:15)
[2022-04-28] MEDS ORDERED: CATHETER FLUSH 10 ML SYR IV PRN (12:15)
[2022-04-28 12:16] LABS: BASOPHILS % (AUTO) 0 % (0-10); EOSINOPHILS # (AUTO) 0.4 10^3/uL (0.0-0.3); EOSINOPHILS % (AUTO) 6 % (0-10); HEMATOCRIT 42 % (40-54); LYMPHOCYTES % (AUTO) 31 % (12-44); MEAN CORPUSCULAR HEMOGLOBIN 30 pg (25-34); MEAN CORPUSCULAR HGB CONC 35 g/dL (32-36); MEAN CORPUSCULAR VOLUME 85 fL (80-99); MEAN PLATELET VOLUME 12.2 fL (9.0-12.2); MONOCYTES # (AUTO) 0.4 10^3/uL (0.0-1.0); MONOCYTES % (AUTO) 6 % (0-12); NEUTROPHILS # (AUTO) 3.6 10^3/uL (1.8-7.8); NEUTROPHILS % (AUTO) 56 % (42-75); PLATELET COUNT 179 10^3/uL (130-400); WHITE BLOOD COUNT 6.5 10^3/uL (4.3-11.0)
[2022-04-28 12:31] LABS: ALBUMIN 4.4 GM/DL (3.2-4.5); BILIRUBIN,TOTAL 0.5 MG/DL (0.1-1.0); CALCIUM 9.3 MG/DL (8.5-10.1); CREATININE SERUM 0.78 MG/DL (0.60-1.30); TOTAL PROTEIN 7.2 GM/DL (6.4-8.2)
--- NOTE | 2022-04-28 13:06 | Diagnostic Imaging Report ---
INDICATION: Right lower quadrant abdominal pain. TECHNIQUE: Multiple contiguous axial images were obtained through the abdomen and pelvis after the administration of intravenous contrast. All CT scans use one or more of the following dose optimizing techniques: automated exposure control, MA and/or KvP adjustment based on patient size and exam type or iterative reconstruction. There is no previous study for comparison. FINDINGS: The visualized portions of the lung bases show no focal infiltrate. There is a small bleb in the right lung base posteriorly. Calcified granuloma also seen in the right lung base. There is no pleural fluid or free intraperitoneal air. The liver shows no focal lesion. Gallbladder appears normal. The spleen, adrenals, and pancreas appear normal. The kidneys bilaterally are unremarkable. There is no retroperitoneal mass or adenopathy. There is no ascites or abnormal fluid collection. Visualized bowel loops show no overt obstruction. The appendix appears normal. There is no pelvic mass or free fluid. IMPRESSION: No acute abnormality is detected. Dictated by: Dictated on workstation # [id number]
[2022-04-28] MEDS ORDERED: ONDA4TAB11 PO (13:16)
[2022-04-28 13:31] VITALS: BP 118/77
[2022-04-28 13:39] LABS: BILIRUBIN,URINE NEGATIVE (NEGATIVE); CLARITY,URINE CLEAR; COLOR,URINE YELLOW; GLUCOSE, URINE (UA) NEGATIVE (NEGATIVE); KETONES,URINE NEGATIVE (NEGATIVE); LEUKOCYTE ESTERASE ,URINE NEGATIVE (NEGATIVE); NITRITE,URINE NEGATIVE (NEGATIVE); PROTEIN,URINE NEGATIVE (NEGATIVE)
[2022-04-28 14:07] LABS: BACTERIA,URINE NEGATIVE /HPF; SQUAMOUS EPITHELIAL CELL,UR RARE /HPF; WBC,URINE 0-2 /HPF
== END 2022-04-28 13:33 | disposition home or self-care (01) ==
LOC: EDUNIT# 11:10 → ER 11:11
DX: R10.31 Right lower quadrant pain (principal)
CPT/HCPCS: 36415; 74177; 80053; 81000; 83690; 85025